=== PATIENT | male | born 1960 | race Caucasian/White ===

== ENCOUNTER 2020-07-13 22:35 | Observation (INO) | payer BC, OTHER ==
[2020-07-13] MEDS ORDERED: Ondansetron PF 4 MG/2 ML Vial ONE (23:25)
[2020-07-13 23:57] LABS: #Eosinphils 0.2 thou/uL (0.0-0.7); #Lymphocytes 1.5 thou/uL (1.20-3.40); #Monocytes 0.7 thou/uL (0.11-0.59); #Neutrophils 2.8 thou/uL (1.40-6.50); %Basophils 0.7 % (0.0-1.0); %Eosinophils 3.6 % (0.0-10.0); %Lymphocytes 28.5 % (21.0-51.0); %Monocytes 13.7 % (0.0-10.0); %Neutrophils 53.6 % (42.0-75.0); Hemoglobin 15.4 g/dL (14.0-18.0); Mean Corpuscular HGB CONC 33.6 g/dL (32.0-36.0); Mean Corpuscular Hemoglobin 29.8 pg (27.0-31.0); Mean Corpuscular Volume 88.9 fL (78.0-98.0); Mean Platelet Volume 7.8 fL (7.4-10.4); Platelet Count 202 thou/uL (130-400); RBC Distribution Width 12.1 % (11.5-14.5); Red Blood Cell (RBC) Count 5.17 mill/uL (4.70-6.10); White Blood Cell (WBC) Count 5.3 thou/uL (4.8-10.8)
[2020-07-14 00:03] LABS: ALT (SGPT) 23 U/L (8-55); AST (SGOT) 19 U/L (5-34); Albumin 3.9 g/dL (3.4-4.8); Alkaline Phosphatase 46 U/L (40-110); Anion Gap 13 mmol/L (10-20); BUN (Urea Nitrogen) 16 mg/dL (8.4-25.7); Bilirubin, Total 0.4 mg/dL (0.2-1.2); Calc. Creatinine Clearance 0 mL/min (70-130); Calcium 8.9 mg/dL (7.8-10.44); Carbon Dioxide 25 mmol/L (23-31); Chloride 106 mmol/L (98-107); Estimated GFR-MDRD 85; Globulin 2.7 g/dL (2.4-3.5); Glucose 113 mg/dL (80-115); Potassium 3.7 mmol/L (3.5-5.1); Protein, Total 6.6 g/dL (5.8-8.1); Sodium 140 mmol/L (136-145)
[2020-07-14] MEDS ORDERED: Aspirin Chewable 81 MG TAB ONE ×2 (00:42→00:43)
[2020-07-14 03:08] LABS: Troponin I Less than 0.010 ng/mL (< 0.028)
--- NOTE | 2020-07-14 03:26 | HP ---
PRIMARY CARE PHYSICIAN: Meet Bailey MD CHIEF COMPLAINT: Chest pain. HISTORY OF PRESENT ILLNESS: The patient is a 59-year-old male with past medical history significant for hyperlipidemia. He presents to the ER today for chest pain, associated with diaphoresis and nausea. The pain began while the patient was sitting and watching TV. He described it as a sharp pain, there was no exacerbating or relieving factors to it, over time it simply dissipated on its own. He states he has kind of had pain like this before, but mainly he normally gets an indigestion feeling that goes away with Tums and this time it felt different. He states that approximately 5 to 6 years ago, he had this kind of chest pain and his troponin was slightly elevated. They completed a stress test, which was normal. He has not had any need for Cardiology followup since that time. The patient denies any shortness of breath, abdominal pain, contact with ill person, change in bowel or bladder patterns. He does state that they just got back from [place] a few days ago. They did drive and were there approximately 10 days. He did have some chest pain on and off while there, but he would take some Tums and it would help it and he just attributed it to the elevation changes at that time. Today in the ER, they completed lab work, an EKG, and a chest x-ray. He was given aspirin 324 mg and 8 mg of Zofran IV. PAST MEDICAL HISTORY: Hyperlipidemia, obstructive sleep apnea, which he uses a CPAP for, and steroid injections to his right shoulder and elbow recently. PAST SURGICAL HISTORY: None. ALLERGIES: NO KNOWN DRUG ALLERGIES. MEDICATIONS: Crestor 40 mg at night. SOCIAL HISTORY: The patient lives at home with his . He denies smoking or illicit drugs. He drinks alcohol very rarely. FAMILY HISTORY: Significant cardiac family history. His mother had an CA at age 51 and his father had an CA at age 75. REVIEW OF SYSTEMS: All other review of systems negative unless noted in the HPI. PHYSICAL EXAMINATION: VITAL SIGNS: Blood pressure 147/94, pulse 60, respiratory rate 18, temperature 98.0, and O2 saturation 95% on room air. GENERAL: No acute distress. Alert and oriented. EYES: PERRLA. Extraocular muscles intact. RESPIRATORY: Clear to auscultation bilaterally. No wheezing or rhonchi. No rales. CARDIOVASCULAR: Regular rate and rhythm. No murmurs, no rubs, no gallops. ABDOMEN: Nontender. Bowel sounds normal. No distention. No masses. No rigidity. EXTREMITIES: No cyanosis, no clubbing, no edema. NEUROLOGIC: Alert and oriented x3. No focal deficits. SKIN: Warm, dry, and intact. LABS AND IMAGING: EKG is normal sinus rhythm at 65 beats per minute. No ectopic beats. Chest x-ray, no acute. Labs, lipase 25. White blood cells 5.3, hemoglobin 15.4, and hematocrit 46.0. Sodium 140, potassium 3.7, GFR 85, creatinine 0.91, glucose 113, and calcium 8.9. Initial troponin unremarkable. BNP 14.4. IMPRESSION AND PLAN: 1.Chest pain. Start the patient on aspirin. Continue to trend his troponins and monitor him on telemetry overnight. Complete vital signs q.4 hours and plan for a stress test in the morning, if the cardiac enzymes remain unremarkable. Will also order magnesium level and fasting lipid in the a.m. 2. Hyperlipidemia. We will obtain a fasting lipid in the morning and restart him on his home medications. 3. ALBINO. Will restart patient's home CPAP at night. Venous thromboembolism prophylaxis, will place with sequential compression devices. Gastrointestinal prophylaxis in place with Protonix. The patient wishes to be a full code. His surrogate decision maker is his , Lynda. The patient has been discussed with Dr. Garcia. Job ID: [id number] MTDD
[2020-07-14 03:33] LABS: Cardiac Risk 2.7 (Less than 4.5)
[2020-07-14 04:35] VITALS: BMI 31.6
[2020-07-14 06:43] LABS: Troponin I Less than 0.010 ng/mL (< 0.028)
--- NOTE | 2020-07-14 07:45 | RAD ---
[facility] CHEST: Date: 07/13/2020 HISTORY: Chest pain. FINDINGS: Lung torres are clear of infiltrate. Vasculature normal. Heart and mediastinum unremarkable. IMPRESSION: No acute process. POS: AGW
[2020-07-14] MEDS ORDERED: Aspirin 325 mg Enteric Coated Tablet PO SCH (09:00)
[2020-07-14] MEDS ORDERED: Iopamidol 370 76% 100 ML VIAL ONE (09:18)
--- NOTE | 2020-07-14 11:06 | NM ---
EXAM: CARDIAC SPECT HISTORY: Chest pain, dyslipidemia TECHNIQUE: A myocardial perfusion scan was performed using the single isotope 1 day protocol with maryann hnetium 99m sestamibi. [10 mCi] was injected intravenously for the rest exam followed by 30 mCi for the stress study. Exercise stress was monitored and interpreted by Cortney Woods nurse practitioner FINDINGS: Homogeneous tracer distribution is seen in the myocardial segments on stress and rest image s without fixed or reversible defects. Gated SPECT LVEF: 64% Wall motion exam: Normal IMPRESSION: Normal myocardial perfusion scan
[2020-07-14] MEDS ORDERED: Acetaminophen 325 MG TAB PO PRN (12:31)
[2020-07-14 16:00] VITALS: BP 142/76; TEMP 98.3
--- NOTE | 2020-07-14 18:10 | CT ---
Exam: CT angiogram of the chest HISTORY: Left-sided chest pain. COMPARISON: None TECHNIQUE: CT angiogram of the chest is performed in the axial plane. Three-dimensional reformatted i mages are submitted for interpretation FINDINGS: Mediastinum: No mass, lymphadenopathy or hematoma. HEART: Normal size. No significant pericardial fluid. Aorta: No aneurysm or dissection Upper solid abdominal viscera: No abnormality enhancement. Trachea and central bronchi: Patent Pleural spaces: No effusion Lung parenchyma: Linear densities in the left lower lobe, right lower lobe, middle lobe and lingula l ikely represent subsegmental atelectasis or scarring. Pneumothorax: None Osseous structures: No lytic or blastic lesions Pulmonary arteries: Adequate contrast opacification pulmonary arterial system to the level of segment al arteries. No filling defect to suggest pulmonary embolism IMPRESSION: 1. No evidence of pulmonary arterial embolism to the level of the segmental arteries.
[2020-07-14 19:12] LABS: SARS-CoV-2 MS2 Positive; SARS-CoV-2 N Gene Negative; SARS-CoV-2 S Gene Negative; SARS-CoV-2 by NAA Not Detected (NotDetected); SARS-CoV-2 orf1ab Negative
[2020-07-14] MEDS ORDERED: FLU VACC QS2020-21(6MOS UP)/PF 60 MCG/0.5 ML SYRINGE IM ONE (21:00)
[2020-07-14] MEDS ORDERED: Rosuvastatin 20 MG TAB PO SCH (21:00)
--- NOTE | 2020-07-15 00:39 | CON ---
DATE OF CONSULTATION: 07/14/2020 REASON FOR CONSULTATION: Chest pain. HISTORY OF PRESENT ILLNESS: Mr. Kimball is a 59-year-old man who has been having chest pain. The patient's pain is sharp, it is localized. He can take one finger and point to a left lower anterior part of his chest where the patient feels sharp like a knife. It will come for several minutes and then resolve. He has had no squeezing pressure, heaviness or tightness typical of angina. The patient recently did take a trip to [place] at a high altitude. He did feel somewhat more short of breath than usual when he was at high altitude. The patient got out and walked around quite a bit during the trip because they did have a friend or family member who had a blood clot form after a car trip. The patient underwent stress testing which was normal. EKG and cardiac enzymes were all normal. The patient is currently resting comfortably. The patient, however, did feel diaphoretic and nauseated with the pain. PAST HISTORY: Mother had heart disease at a young age. Father at an old older age. SOCIAL HISTORY: No tobacco. REVIEW OF SYSTEMS: CONSTITUTIONAL: No significant weight gain or loss. VISION: No changes. HEARING: No changes. PULMONARY: No cough or wheezing. GASTROINTESTINAL: No nausea, vomiting, diarrhea. SKIN: No rashes. NEUROLOGIC: No unilateral weakness or numbness. PSYCHIATRIC: No unusual depression or anxiety. PHYSICAL EXAMINATION: GENERAL: This is a pleasant gentleman, no distress. VITAL SIGNS: Blood pressure 142/76, pulse 63, regular. LUNGS: Clear. CARDIAC: Normal S1, normal S2. No murmur, rub, or gallop. ABDOMEN: Obese, nontender. EXTREMITIES: No clubbing, no cyanosis, or edema. He has good peripheral pulses. Strong posterior tibial pulses with normal dorsalis pedis pulses as well bilaterally. EKGs were normal. Stress test: He went 9 minutes on a Sergio protocol. He had no chest pain and no EKG changes and rare PVCs, but no ST depression. Nuclear medicine imaging was normal at rest and stress. Cardiac enzymes were negative as well. ASSESSMENT: 1. Chest pain, atypical for angina. 2. Recent car trip. 3. Sharp, well-localized chest pain. 4. Negative cardiac enzymes. 5. Negative stress test. PLAN: 1. We will order CT pulmonary angiogram to make sure he did not have pulmonary emboli. 2. Continue statin and aspirin for preventative therapy. At this point, cardiac catheterization would really not be indicated with atypical pain with normal cardiac enzymes, normal EKGs, and normal stress test. Job ID: [id number]
--- NOTE | 2020-07-15 02:15 | DIS ---
DATE OF ADMISSION: 07/14/2020 DATE OF DISCHARGE: 07/14/2020 DISCHARGE DIAGNOSES: 1. Chest pain. 2. Hyperlipidemia. HOSPITAL COURSE: The patient is a very pleasant 59-year-old male, who initially presented to the hospital for chest pain. At this time, his troponins x3 were negative. His stress test was negative. EF of 64%. The patient continued to have some pain at this time. He was seen by Cardiology, no further recommendation was noted. His EKG was normal. D-dimer was normal. He had a CTA since he had this long car ride from [place] to [place], [place], which indicated no acute pulmonary embolism. The patient at this time will be discharged home. He will follow up with primary care. PHYSICAL EXAMINATION: VITAL SIGNS: On discharge; temperature 98.3, heart rate 63, respiratory rate 16, O2 saturation 95% on room air, and blood pressure 142/76. GENERAL: He is awake, alert, and oriented x3. Does not appear in distress. CV: S1 and S2 present. No murmurs, rubs, or gallops. MEDICATIONS: 1. Aspirin 81 mg daily. 2. Rosuvastatin 40 mg at bedtime. Job ID: [id number]
== END 2020-07-14 19:23 | disposition home or self-care (01) ==
LOC: ERS 22:35 → 2SW 07-14 04:10
PROVIDERS: ADMIT Internal Medicine; ATTEND Internal Medicine
DX: I20.9 Angina pectoris, unspecified (principal); E78.5 Hyperlipidemia, unspecified; G47.33 Obstructive sleep apnea (adult) (pediatric); Z79.82 Long term (current) use of aspirin; Z79.899 Other long term (current) drug therapy; Z20.828 Contact with and (suspected) exposure to other viral communicable diseases
CPT/HCPCS: 36415; 71045; 71275; 78452; 80053; 80061; 83690; 83735; 83880; 84484; 85025; 85379; 87635; 93005; 93017; 94760; 96374; A9500; G0378; J2405; Q9967; U0003

== ENCOUNTER 2021-03-06 08:55 | Outpatient (CLI) | payer BC ==
[2021-03-06 12:23] LABS: #Basophils 0.1 10x3/uL (0.0-0.2); #Eosinphils 0.2 10x3/uL (0.0-0.5); #Monocytes 0.7 10x3/uL (0.0-1.1); #Neutrophils 3.3 10x3/uL (1.5-8.4); %Basophils 0.9 % (0.0-2.0); %Eosinophils 2.8 % (0.0-6.0); %Lymphocytes 25.9 % (18.0-47.0); %Monocytes 11.4 % (0.0-10.0); %Neutrophils 58.8 % (40.0-75.0); Hemoglobin 15.6 g/dL (13.5-17.5); Mean Corpuscular HGB CONC 34.4 g/dL (32.0-36.0); Mean Corpuscular Volume 87.1 fl (81.2-95.1); Mean Platelet Volume 10.4 fl (7.4-10.4); Platelet Count 214 10x3/uL (150-450); RBC Distribution Width 12.5 % (11.5-14.5); White Blood Cell (WBC) Count 5.7 10x3/uL (3.5-10.5)
[2021-03-06 12:27] LABS: Anion Gap 12 mmol/L (10-20); BUN (Urea Nitrogen) 26 mg/dL (8.4-25.7); Calc. Creatinine Clearance 0 mL/min (70-130); Calcium 9.3 mg/dL (7.8-10.44); Carbon Dioxide 25 mmol/L (23-31); Chloride 105 mmol/L (98-107); Glucose 89 mg/dL (80-115); Sodium 138 mmol/L (136-145)
[2021-03-06 13:06] LABS: Bilirubin Neg (Negative); Blood, Urine Negative (Negative); Clarity Clear (Clear); Glucose, Urine (Dipstick) Normal (Negative); Ketone, Urine Negative (Negative); Leukocyte Negative (Negative); Nitrite Negative (Negative); Protein, Urine (Dipstick) Negative (Neg-Trace); Specific Gravity, Urine 1.005 (1.002-1.036); Urobilinogen Normal mg/dL (Less than 2)
[2021-03-06 13:29] LABS: RBC/HPF None Seen HPF (0-3); Squamous Epithelial None Seen HPF (0-3); WBC/HPF 0-3 HPF (0-3)
[2021-03-06 13:30] LABS: Bacteria/HPF None Seen HPF (None Seen)
[2021-03-07 00:07] LABS: SARS-CoV-2 PCR by NAA Not Detected (NotDetected)
== END 2021-03-06 08:56 | disposition home or self-care (01) ==
LOC: LABBT 08:55
PROVIDERS: ATTEND Orthopaedic Surgery
DX: Z01.818 Encounter for other preprocedural examination (principal); M75.121 Complete rotator cuff tear or rupture of right shoulder, not specified as traumatic; Z20.822 Contact with and (suspected) exposure to COVID-19
CPT/HCPCS: 80048; 81001; 85025; U0003; U0005

== ENCOUNTER 2021-03-11 05:56 | Day surgery (SDC) | payer BC ==
[2021-03-06 13:40] VITALS: BMI 31.1
[2021-03-11] MEDS ORDERED: Midazolam HCl 2 mg/2 ml Vial ONE (06:48)
[2021-03-11] MEDS ORDERED: Lidocaine 1% (PF) 30 ML VIAL ONE (06:49)
[2021-03-11] MEDS ORDERED: Fentanyl 100 MCG/2 ML VIAL ONE ×2 (06:49→07:05)
[2021-03-11] MEDS ORDERED: Phenylephrine 10 MG/ML VIAL ONE (07:05)
[2021-03-11] MEDS ORDERED: Fentanyl 100 MCG/2 ML VIAL IV PRN (07:21)
[2021-03-11] MEDS ORDERED: Zolpidem Tartrate 5 MG TAB PO PRN (07:30)
[2021-03-11] MEDS ORDERED: Ropivacaine 0.2% 550 ML 550 ML NERVE BLCK SCH (07:30)
[2021-03-11] MEDS ORDERED: Ondansetron PF 4 MG/2 ML Vial IVP PRN (07:30)
[2021-03-11] MEDS ORDERED: Promethazine HCl 25 MG/ML VIAL IM PRN (07:30)
[2021-03-11] MEDS ORDERED: HYDROcodone/Acetaminophen 10/325 mg Tablet PO PRN ×2 (07:30)
[2021-03-11] MEDS ORDERED: traMADol HCl 50 MG TAB PO PRN ×2 (07:30)
[2021-03-11] MEDS ORDERED: Dexamethasone 20 MG/5 ML VIAL ONE (07:45)
[2021-03-11] MEDS ORDERED: Ondansetron PF 4 MG/2 ML Vial ONE (07:45)
[2021-03-11] MEDS ORDERED: PROPOFOL 200 MG/20 ML VIAL ONE (07:45)
[2021-03-11] MEDS ORDERED: Ropivacaine 0.5% HCl/PF (150 MG/30 ML VIAL) ONE (07:45)
[2021-03-11] MEDS ORDERED: Rocuronium Bromide 10 MG/ML (10ML VIAL) ONE (07:45)
[2021-03-11] MEDS ORDERED: Ketorolac Tromethamine 30 MG/ML VIAL ONE (07:45)
[2021-03-11] MEDS ORDERED: Lidocaine 1% PF 5 ML VIAL ONE (07:45)
[2021-03-11] MEDS ORDERED: Glycopyrrolate 0.2 MG/ML 5 ML SYRINGE ONE ×2 (07:45)
[2021-03-11] MEDS ORDERED: Lidocaine 1% w/Epinephrine 1:100K 20 ML VIAL ONE (08:12)
[2021-03-11] MEDS ORDERED: Promethazine HCl 25 MG/ML VIAL ONE (10:28)
[2021-03-11] MEDS ORDERED: Ketorolac Tromethamine 30 MG/ML VIAL IVP SCH (12:00)
== END 2021-03-11 12:12 | disposition home or self-care (01) ==
LOC: SDC 05:56
PROVIDERS: ATTEND Orthopaedic Surgery
PROC: 0LQ14ZZ Repair Right Shoulder Tendon, Percutaneous Endoscopic Approach (ICD-10-PCS; principal; 2021-03-11)
PROC: 0LS30ZZ Reposition Right Upper Arm Tendon, Open Approach (ICD-10-PCS; principal; 2021-03-11)
PROC: 0RHJ04Z Insertion of Internal Fixation Device into Right Shoulder Joint, Open Approach (ICD-10-PCS; principal; 2021-03-11)
PROC: 3E0T3BZ Introduction of Anesthetic Agent into Peripheral Nerves and Plexi, Percutaneous Approach (ICD-10-PCS; principal; 2021-03-11)
PROC: 0RNJ4ZZ Release Right Shoulder Joint, Percutaneous Endoscopic Approach (ICD-10-PCS; principal; 2021-03-11)
DX: M75.121 Complete rotator cuff tear or rupture of right shoulder, not specified as traumatic (principal); M75.41 Impingement syndrome of right shoulder; S43.431A Superior glenoid labrum lesion of right shoulder, initial encounter; M25.311 Other instability, right shoulder; G89.18 Other acute postprocedural pain; M19.011 Primary osteoarthritis, right shoulder; E78.5 Hyperlipidemia, unspecified; Z79.82 Long term (current) use of aspirin; Z79.899 Other long term (current) drug therapy
CPT/HCPCS: A4306; C1713; J0690; J1100; J1885; J2001; J2250; J2370; J2405; J2550; J2704; J2795; J3010

== ENCOUNTER 2022-08-25 12:34 | Outpatient (CLI) | payer OTHER | END 2022-08-25 12:35 | disposition home or self-care (01) | LOC: SCSMRI 12:34 | PROVIDERS: ATTEND Neurological Surgery | DX: M47.22 Other spondylosis with radiculopathy, cervical region (principal); M48.02 Spinal stenosis, cervical region | CPT/HCPCS: 72141 ==

== ENCOUNTER 2022-10-06 05:33 | Day surgery (SDC) | payer OTHER ==
[2022-10-01 12:25] VITALS: BMI 32.0
[2022-10-06] MEDS ORDERED: Thrombin 5000 UNITS/5 ML VIAL ONE (06:22)
[2022-10-06] MEDS ORDERED: Dexmedetomidine 200 MCG/2 ML VIAL ONE (06:40)
[2022-10-06] MEDS ORDERED: Fentanyl 250 MCG/5 ML VIAL ONE (06:40)
[2022-10-06] MEDS ORDERED: CEFAZOLIN 2 GM VIAL ONE ×2 (06:46→10:59)
[2022-10-06] MEDS ORDERED: Sodium Chloride 0.9% 100 ML ONE ×2 (06:46→10:59)
[2022-10-06] MEDS ORDERED: NEOSTIGMINE 3 MG/3 ML SYR 3 MG/3 ML SYRINGE ONE (07:03)
[2022-10-06] MEDS ORDERED: ePHEDrine 50 MG/ML VIAL ONE (07:03)
[2022-10-06] MEDS ORDERED: Glycopyrrolate 0.2 MG/ML 5 ML SYRINGE ONE (07:03)
[2022-10-06] MEDS ORDERED: Dexamethasone 20 MG/5 ML VIAL ONE (07:03)
[2022-10-06] MEDS ORDERED: Lidocaine 1% PF 5 ML VIAL ONE (07:03)
[2022-10-06] MEDS ORDERED: Rocuronium Bromide 10 MG/ML (10ML VIAL) ONE (07:03)
[2022-10-06] MEDS ORDERED: Ondansetron PF 4 MG/2 ML Vial ONE ×2 (07:03→10:32)
[2022-10-06] MEDS ORDERED: PROPOFOL 200 MG/20 ML VIAL ONE (07:03)
[2022-10-06] MEDS ORDERED: Rocuronium Bromide 50 MG/5 ML VIAL ONE (07:51)
[2022-10-06] MEDS ORDERED: Lidocaine 2% PF 100 mg/5 ml Syringe ONE (07:51)
[2022-10-06] MEDS ORDERED: PROPOFOL 20 ML ONE (07:51)
[2022-10-06] MEDS ORDERED: SUGAMMADEX SODIUM 200 MG/2 ML VIAL ONE (08:31)
[2022-10-06] MEDS ORDERED: ePHEDrine Sulfate 50 MG/10 ML VIAL ONE (08:44)
[2022-10-06] MEDS ORDERED: Tamsulosin HCl 0.4 MG CAP ONE (08:57)
[2022-10-06] MEDS ORDERED: Fentanyl 100 MCG/2 ML VIAL ONE (09:06)
== END 2022-10-06 12:04 | disposition home or self-care (01) ==
LOC: SDC 05:33
PROVIDERS: ATTEND Neurological Surgery
PROC: 0RG20A0 Fusion of 2 or more Cervical Vertebral Joints with Interbody Fusion Device, Anterior Approach, Anterior Column, Open Approach (ICD-10-PCS; principal; 2022-10-06)
DX: M54.12 Radiculopathy, cervical region (principal); M48.02 Spinal stenosis, cervical region; M19.90 Unspecified osteoarthritis, unspecified site; Z79.899 Other long term (current) drug therapy
CPT/HCPCS: C1713; C1889; J1100; J2001; J2405; J2704; J3010; J3490